=== PATIENT | male | born 1970 ===

== ENCOUNTER 2018-01-10 19:52 | Emergency (ER) | payer SELFPAY ==
[2018-01-10 20:06] VITALS: TEMP 98.3; O2SAT 98
--- NOTE | 2018-01-10 22:02 | C.PDOC ---
History Of Present Illness 47 year old male presents to the ED c/o intermittent right knee pain for the past 3 days. Patient reports his pain is worse on ambulation. Patient reports he took Ibuprofen at home with minimal relief. Patient denies trauma, fall, injury, weakness, numbness. Time Seen by Provider: 01/10/18 20:24 Chief Complaint (Nursing): Lower Extremity Problem/Injury History Per: Patient History/Exam Limitations: no limitations Onset/Duration Of Symptoms: Days Recent travel outside of the [place]: No Additional History Per: Patient - Knee Description Of Injury: Other Currently Unable To: Bend Or Move Alleviating Factor(s): OTC Pain Medication Past Medical History Reviewed: Historical Data, Nursing Documentation, Vital Signs Vital Signs: Last Vital Signs Temp 98.3 F 01/10/18 20:02 Pulse 78 01/10/18 22:17 Resp 20 01/10/18 22:17 BP 145/85 01/10/18 22:17 Pulse Ox 98 01/10/18 23:23 - Medical History PMH: No Chronic Diseases Surgical History: No Surg Hx Family History: States: Unknown Family Hx - Social History Hx Alcohol Use: No Hx Substance Use: No - Immunization History Hx Tetanus Toxoid Vaccination: No Hx Influenza Vaccination: No Hx Pneumococcal Vaccination: No Review Of Systems Constitutional: Negative for: Fever, Chills Musculoskeletal: Positive for: Leg Pain Skin: Negative for: Rash Neurological: Negative for: Weakness, Numbness Physical Exam - Physical Exam Appears: Non-toxic, No Acute Distress Skin: Normal Color, Warm, Dry Head: Atraumatic, Normacephalic Eye(s): bilateral: Normal Inspection Extremity: Normal ROM, Tenderness (anterior and posterior right knee), No Pedal Edema, No Calf Tenderness, Capillary Refill (< 2 seconds), No Deformity, No Swelling, No Other (No cysts palpable on popliteal area) Pulses: Left Dorsalis Pedis: Normal, Right Dorsalis Pedis: Normal Neurological/Psych: Oriented x3, Normal Motor, Normal Sensation Gait: Steady ED Course And Treatment O2 Sat by Pulse Oximetry: 98 (On RA) Pulse Ox Interpretation: Normal - Other Rad Right Knee X-Ray X-Ray: Interpreted by Me, Viewed By Me Interpretation: No fractures or dislocations seen. Progress Note: Plan: - Right knee X-Ray. - Toradol 30 mg IM. Patient was placed on a knee brace by the RN. Patient was advised to follow up with his PMD in 1-2 days for further evaluation. Disposition Counseled Patient/Family Regarding: Diagnosis, Need For Followup, Rx Given - Disposition Referrals: Sachin Gutiérrez [Medical Doctor] - Disposition: HOME/ ROUTINE Disposition Time: 22:00 Condition: STABLE Additional Instructions: Take meds as directed Follow up with PMD Keep brace for support Return to ER if worse Prescriptions: Naproxen [Naprosyn] 1 tab PO BID PRN #20 tab PRN Reason: Pain Instructions: Knee Pain (DC) Forms: [employer] (Serbian) - Clinical Impression Clinical Impression: Right knee pain, Arthritis - PA / [employer] / Resident Statement MD/DO has reviewed & agrees with the documentation as recorded. - Scribe Statement The provider has reviewed the documentation as recorded by the Scribe Eyad Moeller All medical record entries made by the Scribe were at my direction and personally dictated by me. I have reviewed the chart and agree that the record accurately reflects my personal performance of the history, physical exam, medical decision making, and the department course for this patient. I have also personally directed, reviewed, and agree with the discharge instructions and disposition.
[2018-01-10 22:18] VITALS: RESP 20
[2018-01-10 22:43] VITALS: BP 145/85; PULSE 78
--- NOTE | 2018-01-11 09:43 | RAD ---
PROCEDURE: Right Knee Radiographs. HISTORY: knee pain, swelling COMPARISON: None. FINDINGS: BONES: No evidence of acute displaced fracture nor dislocation. JOINTS: Joint spaces preserved however there is a tiny posterior superior patellar osteophyte. JOINT EFFUSION: Small to medium-sized suprapatellar joint effusion. OTHER FINDINGS: None. IMPRESSION: No evidence of acute displaced fracture nor dislocation. Small to medium-sized suprapatellar effusion. Tiny posterior superior patellar osteophyte.
== END 2018-01-10 22:17 | disposition home or self-care (01) ==
LOC: C.ER 19:52
DX: M25.561 Pain in right knee (principal); M13.861 Other specified arthritis, right knee
CPT/HCPCS: 73562; 96372; 99283; J1885